=== PATIENT | female | born 1960 | race Caucasian/White ===

== ENCOUNTER → 2018-09-10 | Outpatient (CLI) | payer BC ==
--- NOTE | 2018-09-10 15:27 | Diagnostic Imaging Report ---
PROCEDURE: CT abdomen and pelvis without contrast. TECHNIQUE: Multiple contiguous axial images were obtained through the abdomen and pelvis without the use of intravenous contrast. INDICATION: Left-sided flank pain. No prior studies are available for comparison. The lung bases are clear. Liver and gallbladder are unremarkable. No biliary duct dilatation is seen. The pancreas and spleen are unremarkable. No adrenal mass is identified. There is a nonobstructing calculus lower pole right kidney measuring 4 mm. No left renal calculi are seen. No definite ureteral calculi or hydronephrosis is identified. The aorta is normal caliber. Small and large bowel loops are normal caliber. There is no ascites. Uterus is unremarkable. IMPRESSION: 1. 4 mm nonobstructing right renal calculus. No ureteral calculi or hydronephrosis is identified. Dictated by: Dictated on workstation # [id number]
== END ==
LOC: RAD FS 14:10
PROVIDERS: ATTEND Family Medicine
DX: N20.0 Calculus of kidney (principal)
CPT/HCPCS: 74176

== ENCOUNTER → 2020-11-26 | Outpatient (CLI) | payer BC ==
[~2020-11-26] MED LIST: CATHETER FLUSH 10 ML SYR IV PRN; HOLD METFORMIN - RECEIVED CONTRAST 20 ML VIAL IV SCH; IOHEXOL 350 MG/ML 100 ML (OMNIPAQUE 350) VIAL IV ONE; NS 100 ML (IVPB) BAG IV ONE
--- NOTE | 2020-11-26 12:32 | Diagnostic Imaging Report ---
PROCEDURE: CT abdomen with and without contrast. TECHNIQUE: Multiple contiguous axial CT images of the abdomen were obtained prior to and after intravenous administration of iodinated contrast. Auto Exposure Controls were utilized during the CT exam to meet ALARA standards for radiation dose reduction. INDICATION: Unintentional weight loss, intermittent abdominal pain x2 years. History of hepatitis B. CORRELATION STUDY: 09/10/2018 FINDINGS: Lung bases clear. Heart size within normal limits. GE junction unremarkable. Liver, gallbladder, spleen, pancreas, adrenal glands are unremarkable. Kidneys with normal enhancement. Nonobstructing 3-4 mm calcification right inferior pole. Abdominal aorta, trace wall calcification, nonaneurysmal. The partially visualized gastrointestinal track with mild stool through the colon. No obstruction or inflammation. Visualized osseous structures demonstrate no acute abnormality. Pelvis not imaged on this study. IMPRESSION: 1. Negative acute abnormality about the abdomen. 2. Small nonobstructing right renal stone. Dictated by: Dictated on workstation # [id number]
== END ==
LOC: RAD FS 08:53
PROVIDERS: ATTEND Nurse Practitioner Family
DX: N20.0 Calculus of kidney (principal); B18.1 Chronic viral hepatitis B without delta-agent; R63.4 Abnormal weight loss
CPT/HCPCS: 74170